=== PATIENT | male | born 1985 ===

== ENCOUNTER 2023-07-23 10:55 | Emergency (ER) | payer MEDICAID, SELFPAY ==
--- NOTE | ~2023-07-23 | XR_ITS ---
EXAMINATION: XR WRIST, LEFT CLINICAL INFORMATION: Ulnar deformity with prior injury 2 years ago COMPARISON: None available. TECHNIQUE: 5 views of the left wrist. FINDINGS: There is evidence of an old distal radial fracture with healing. The fracture probably involves the joint space. There is mild ventral angulation of the distal fracture fragment. There is a subacute/acute fracture involving the medial aspect of the tip of the distal radius (see martinez images). No other fractures are seen. The ulna appears unremarkable. XR/XR wrist LT 2V IMPRESSION: 1. Old distal healed radial fracture with healing. 2. Acute/subacute fracture involving the medial aspect of the tip of the distal radius.
[2023-07-23 11:18] VITALS: BP 124/77; PULSE 83; RESP 19; TEMP 36.6; O2SAT 98
--- NOTE | 2023-07-23 11:18 | ED.GENADULT ---
HPI - General Adult General Chief complaint: Extremity Injury, Upper Stated complaint: lump on wrist Related Data Allergies Allergy/AdvReac Type Severity Reaction Status Date / Time No Known Allergies Allergy Verified 07/23/23 11:17 Physical Exam ED Vital Signs: Vital Signs - 24 hr 07/23/23 11:18 Temperature 98 F Pulse Rate 83 Respiratory Rate 19 Blood Pressure 124/77 Pulse Oximetry 98 BMI result Body Mass Index 30.0 Course Course Course Narrative: This is a rapid medical exam: Additional HPI, ROS, PE not included below will be deferred to primary provider. Patient is a 38-year-old right-hand dominant male presenting to the emergency department with complaint of lump to left wrist. States has been there for years, was told he would likely need surgery but patient states I didn't have time to do it. States pain became worse suddenly a few days ago. Positive deformity to distal ulna. Reports was initially caused by a fall around 2 years ago. Plan: x-ray Discharge Plan Discharge Clinical Impression: Deformity of wrist Patient Disposition: Left W/O Completing Treatment
== END 2023-07-23 16:54 | disposition left against medical advice (07) ==
PROVIDERS: Emergency Provider Emergency Medicine
DX: S52.502A Unspecified fracture of the lower end of left radius, initial encounter for closed fracture (principal); X58.XXXA Exposure to other specified factors, initial encounter; M25.532 Pain in left wrist; Y93.9 Activity, unspecified; Y92.9 Unspecified place or not applicable; Y99.9 Unspecified external cause status
CPT/HCPCS: 73100; 99281; 99283

== ENCOUNTER 2023-09-02 11:59 | Emergency (ER) | payer MEDICAID, OTHER, SELFPAY ==
[2023-09-02 12:10] VITALS: BP 141/99; BP 156/112; PULSE 107; PULSE 84; RESP 16; TEMP 36.2; O2SAT 100; O2SAT 99; BMI 31.0
--- NOTE | 2023-09-02 12:58 | ED.OVERDOSE ---
HPI - Overdose General Chief Complaint: Overdose Stated Complaint: OD FROM INP PROG,NARCAN GIVEN,GOOD RESULT PER EMS Time Seen by Provider: 09/02/23 12:31 Source: patient, EMS, RN notes reviewed and old records reviewed Mode of arrival: EMS History of Present Illness HPI Narrative: 38-year-old male with a past medical history of substance abuse presenting to the ED via EMS s/p accidental overdose on Fentanyl AMBULATORY CARE. Patient was at [facility] long-term house, found in bathroom by staff, given 4mg intranasal Narcan with positive resolved. Patient admits to snorting Fentanyl, denies other drug use including marijuana or EtOH. Denies SI/HI, reports recreational use. States relapse today after 2 months sober. Denies injury/fall, headache, neck/back pain, abdominal pain, nausea/vomiting MD complaint: accidental overdose Related Data Allergies Allergy/AdvReac Type Severity Reaction Status Date / Time No Known Allergies Allergy Verified 07/23/23 11:17 Review of Systems Review of Systems: Constitutional: No Fever, No Chills, No Fatigue, No Malaise ENT/Mouth: No Ear Pain, No Nasal Congestion, No sore throat, No Rhinorrhea, No Swallowing Difficulty Eyes: No Eye Pain, No Swelling, No Redness, No Vision Changes Cardiovascular: No Chest Pain, No SOB, No Edema, No Palpitations Respiratory: No Cough, No Sputum, No Dyspnea Gastrointestinal: No Nausea, No Vomiting, No Diarrhea, No Abdominal pain Musculoskeletal: No joint pain, No Myalgias, No Joint Swelling Skin: No Skin Lesions, No rash Neuro: No Weakness, No Headache Psych: No Anxiety/Panic, No Depression, No SI/HI/AH/VH, No Social Issues Yes all other systems are reviewed and are negative Constitutional: Constitutional: Reports as per HPI [facility] Past Medical History Attestation statement: The following information was validated with the patient. Source: old records reviewed Social History Social History Advance Directives: No Physical Exam Vital Signs: Vital Signs: Last Vital Signs Temp 97.2 F 09/02/23 12:10 Pulse 84 09/02/23 12:10 Resp 16 09/02/23 12:10 BP 141/99 H 09/02/23 12:10 Pulse Ox 100 11/01/23 12:10 O2 Del Method Room Air 11/01/23 12:10 BMI result Body Mass Index 31.0 Const: General: cooperative, no acute distress, alert and awake Orientation/consciousness: patient oriented x3 Limitations: no limitations HEENT: Head: Yes normal to inspection, Yes atraumatic, No Osborne's sign and No raccoon eyes Ears: hearing grossly normal bilaterally General nose exam: Normal external nose present Face and sinus: Yes normal facial exam Throat: Yes posterior oropharynx normal Eyes: General: appearance normal, both eyes and all related structures Pupils: Equal, round and reactive pupils present EOM: EOMs intact bilaterally Neck: Neck: Yes normal visual inspection and Yes no meningeal signs Resp: Effort & Inspection: normal respiratory effort and no respiratory distress Auscultation: clear to auscultation bilaterally Cardio: Rate: regular rate Heart sounds: S1 normal heart sound present and S2 normal heart sound present GI: Inspection: Yes normal to inspection Palpation (GI): Soft to palpation, nontender, no guarding and not rigid Skin: Rashes: no rashes Wounds: no wounds Neuro: General: patient oriented x3, tone normal, moves all extremities, no meningeal signs, no focal motor deficits and CN's II-XI intact bilaterally Cranial nerves: Yes CN's II-XII intact bilaterally and Yes Equal, round and reactive pupils present Extrem: General: Yes normal to inspection Psych: Thought content: suicidality and no homicidality Course Course Course Narrative: -1338--patient has remained awake and alert, was evaluated by recovery team and cleared for discharge. Will be sent home with [facility] to go -1556--patient lost his housing. Recovery working on detox placement. -1630--ED care transferred to [facility] pending detox placement Results discussed with patient including worrisome signs and symptoms and strict return precautions, and when to return to the emergency department. They verbalized understanding and feel safe for discharge at this time. Medications Administered Discontinued Medications Generic Name Dose Route Start Last Admin Trade Name Freq PRN Reason Stop Dose Admin Naloxone HCl 8 mg 09/02/23 13:00 09/02/23 14:08 Naloxone Hcl Nasal Take Home 4 Mg [place] NOSTRILALT 09/02/23 13:01 8 mg ONCE ONE Administration Medical Decision Making Medical Decision Making [facility] Narrative: 38-year-old male with a past medical history of substance abuse presenting to the ED via EMS s/p accidental overdose on Fentanyl AMBULATORY CARE. On exam vital signs stable, in NAD, nontoxic appearing, awake alert, no apparent distress, denies SI/HI. Concern for accidental overdose. Low suspicion for ICH/fracture Plan: Tox screen, observe and re-evaluate for clinical sobriety, SUDE eval Please refer to course for remaining clinical decision making, interpretation of labs/imaging results, and discussions with consultants and/or family members. Differential Diagnosis Differential Diagnoses: The differential diagnosis associated with the presentation includes As above Lab Data MDM Lab Attestation statement: I reviewed the patient's lab results. Independent Historian Clinical information obtained from an independent historian. History obtained from or confirmed by: EMS External Record Review External record reviewed: Inpatient record, Office record, Outpatient record, Prior outpatient labs, Prior outpatient radiology, Primary care record and Outside ED record Tests considered The following testing was considered but not selected: As above Social Determinants Patient?s care significantly limited by Social Determinants of Health including: Inadequate housing, Low income, Alcoholism and drug addiction in family and Problems related to primary support group Discharge Plan Discharge Clinical Impression: Drug overdose Patient Disposition: Home, Self-Care Instructions: Adult Overdose (ED) Additional Instructions: Avoid alcohol and drug use this can kill you Your being sent home with Narcan, please have this on you at all times Follow-up with your doctor Consider detox Referrals: [facility] [Provider Group] [facility] [Outside]
--- NOTE | 2023-09-02 13:56 | HO.SUDE ---
Met with pt in ED6h who is here for OD to complete SUDE. Pt infoms he used less than a gram of fentanyl nasally and is currently on 60mg Methadone from a clinic in [place] that he cannot remember the name of. Pt has been sober for the past 2 months before using today and regrets using today and does not want to use again going forward. T/W reviewed harm reduction and overdose prevention with pt who verbalized understanding and has no other questions or concerns at this time.
[2023-09-02] MEDS: Naloxone HCl Nasal TAKE HOME 4 MG SPRAY 8 MG NOSTRILALT (14:08)
--- NOTE | 2023-09-02 17:33 | MHC.RECOVSUP ---
Pt has been accepted to [facility]. Lyyaya will be ordered for pt around 7pm.
== END 2023-09-02 19:10 | disposition home or self-care (01) ==
LOC: HO.ED 13:45
PROVIDERS: Emergency Provider Emergency Medicine Emergency Medical Services
DX: F19.10 Other psychoactive substance abuse, uncomplicated (principal); T40.411A Poisoning by fentanyl or fentanyl analogs, accidental (unintentional), initial encounter; R40.4 Transient alteration of awareness; Y92.041 Bathroom in boarding-house as the place of occurrence of the external cause
CPT/HCPCS: 99283